=== PATIENT | male | born 1980 | race Caucasian/White ===

== ENCOUNTER → 2024-05-15 | Outpatient (CLI) | payer BC, SELFPAY ==
[2024-05-15 08:55] LABS: Collection Type, Urine Clean Catch
[2024-05-15 09:33] LABS: Basophils # (Auto) 0.1 Thou/mm3 (0.0-0.2); Basophils % (Auto) 1 % (0-2.5); Eosinophils # (Auto) 0.1 Thou/mm3 (0.0-0.5); Eosinophils % (Auto) 1 % (0-10); Hematocrit 45.3 % (41.0-53.0); Immature Granulocytes % (Auto) 0 % (0-0); Immature Granulocytes Auto 0.02 Thou/mm3 (0.00-0.00); Lymphocytes # (Auto) 2.1 Thou/mm3 (1.0-4.8); Lymphocytes % (Auto) 22 % (10-50); Mean Corpuscular HGB Conc 33.1 g/dl (31.0-37.0); Mean Corpuscular Volume 85 fL (80-100); Monocytes # (Auto) 0.5 Thou/mm3 (0.0-0.8); Monocytes % (Auto) 5 % (0-12); Neutrophils # (Auto) 6.7 Thou/mm3 (1.8-7.7); Neutrophils % (Auto) 70 % (37-80); Nucleated Red Blood Cell % 0 /100 WBC (0); Platelet Count 296 Thou/mm3 (140-440); RDW Standard Deviation 39.7 fL (35.1-43.9); Red Blood Count 5.35 Miln/mm3 (4.50-5.90); White Blood Count 9.6 Thou/mm3 (3.8-10.6)
[2024-05-15 09:37] LABS: Bilirubin,Urine Negative (Negative); Blood,Urine Negative (Negative); Clarity,Urine Clear (Clear/Hazy); Color,Urine Lt-Yellow (Lt Yel-Yel); Culture Indicated,Urine Not Indicated; Glucose, Urine Negative (Negative); Ketones,Urine Negative (Negative); Leukocyte Esterase,Urine Negative (Negative); Nitrite,Urine Negative (Negative); PH,Urine 6.5 (5.0-7.0); Protein,Urine Negative (Neg - Trace); RBC,Urine < 1 /hpf (0-3); Specific Gravity,Urine 1.018 (1.001-1.035); Squamous Epithelial Cell,Urine < 1 /hpf (0-5); Urobilinogen,Urine Negative mg/dL (0.0-1.0); WBC,Urine 1 /hpf (0-5)
[2024-05-15 09:42] LABS: Glucose Estimated Average 100 mg/dL (80-131); Hemoglobin A1C 5.1 % Hgb (4.8-6.0)
[2024-05-15 09:50] LABS: Prostate Specific Antigen 1.03 ng/mL (0-4.00)
[2024-05-15 09:56] LABS: Vitamin D 25 Hydroxy Total 32.2 ng/mL (7.3-40.2)
[2024-05-15 10:13] LABS: Alanine Aminotransferase 9 U/L (10-49); Albumin, Serum 4.2 gm/dL (3.5-5.0); Alkaline Phosphatase 57 U/L (46-116); Anion Gap 6 (7-16); Aspartate Amino Transferase 15 U/L (0-34); BUN/Creatinine Ratio 21 Ratio (12-20); Bilirubin,Total 0.5 mg/dL (0.3-1.2); Blood Urea Nitrogen 21 mg/dL (9-23); Calcium 9.6 mg/dL (8.3-10.6); Calcium (Corrected) 9.6 mg/dL (8.5-10.1); Carbon Dioxide 24.8 mMol/L (20.0-31.0); Cardiac Risk Estimate 5.2 RATIO (4.0-6.7); Chloride 106 mMol/L (98-107); Cholesterol 222 mg/dL (132-200); Globulin 2.1 gm/dL (2.3-3.5); Glucose 89 mg/dL (74-106); HDL Cholesterol 43 mg/dL (40-60); LDL Cholesterol,Calculated 155 mg/dL (0-130); Osmolality,Calculated 275 (275-295); Potassium 4.6 mMol/L (3.4-5.1); Sodium 137 mMol/L (136-145); Thyroid Stimulating Hormone 1.34 uIU/mL (0.55-4.78); Total Protein 6.3 gm/dL (5.7-8.2); Triglycerides 119 mg/dL (30-150); eGFR > 60 See Note
== END | disposition home or self-care (01) ==
LOC: COPL 08:17
PROVIDERS: PCP Nurse Practitioner Family; Referring Provider Nurse Practitioner Family; Visit Provider Nurse Practitioner Family
DX: Z00.00 Encounter for general adult medical examination without abnormal findings (principal)
CPT/HCPCS: 36415; 80053; 80061; 81001; 82306; 83036; 84153; 84443; 85025

== ENCOUNTER 2024-06-29 09:10 | Day surgery (SDC) | payer BC, SELFPAY ==
--- NOTE | 2024-06-26 08:17 | EKG_ITS ---
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
[2024-06-26 12:05] LABS: Partial Thromboplastin Time 25.8 Seconds (22.0-36.0); Prothrombin Time 10.8 Seconds (9.0-12.2)
[2024-06-26 12:05] LABS: Alanine Aminotransferase 8 U/L (10-49); Albumin, Serum 4.2 gm/dL (3.5-5.0); Albumin/Globulin Ratio 1.7 (1.2-2.2); Alkaline Phosphatase 67 U/L (46-116); Anion Gap 11 (7-16); Aspartate Amino Transferase 19 U/L (0-34); BUN/Creatinine Ratio 21 Ratio (12-20); Bilirubin,Total 0.7 mg/dL (0.3-1.2); Blood Urea Nitrogen 21 mg/dL (9-23); Calcium 9.7 mg/dL (8.3-10.6); Calcium (Corrected) 9.7 mg/dL (8.5-10.1); Carbon Dioxide 22.8 mMol/L (20.0-31.0); Chloride 106 mMol/L (98-107); Globulin 2.5 gm/dL (2.3-3.5); Glucose 101 mg/dL (74-106); Osmolality,Calculated 282 (275-295); Sodium 140 mMol/L (136-145); Total Protein 6.7 gm/dL (5.7-8.2); eGFR > 60 See Note
[2024-06-29 10:10] VITALS: BP 121/79; PULSE 73; RESP 19; TEMP 36.2; O2SAT 97; BMI 33.4
[2024-06-29 11:18] VITALS: BP 127/81; PULSE 70; PULSE 71; RESP 18; O2SAT 99
[2024-06-29] MEDS: RINGERS LACTATED 1000 ML 1,000 ML 125 ML IV (11:18)
[2024-06-29 11:36] VITALS: BP 121/77; PULSE 72; RESP 24; TEMP 36.4; O2SAT 92
[2024-06-29 11:46] VITALS: BP 120/77; PULSE 75; RESP 15; O2SAT 93
[2024-06-29 11:56] VITALS: BP 120/80; PULSE 83; RESP 16; O2SAT 95
[2024-06-29 12:06] VITALS: BP 123/79; PULSE 84; RESP 18; TEMP 36.4; O2SAT 95
== END 2024-06-29 12:10 | disposition home or self-care (01) ==
PROVIDERS: Anesthesiology; PCP Nurse Practitioner Family; Referring Provider Specialist; Visit Provider Specialist
PROC: (CPT 43239; principal; 2024-06-29 10:15)
DX: K20.90 Esophagitis, unspecified without bleeding (principal); K22.10 Ulcer of esophagus without bleeding; K29.70 Gastritis, unspecified, without bleeding; K29.50 Unspecified chronic gastritis without bleeding; Z01.810 Encounter for preprocedural cardiovascular examination
CPT/HCPCS: 43239; 36415; 80053; 85610; 85730; 93005; A4649; J7120

== ENCOUNTER → 2024-07-16 | Outpatient (BNVA) | payer BC, SELFPAY | END | disposition home or self-care (01) | PROVIDERS: PCP Family Medicine; Referring Provider Family Medicine; Visit Provider Urology | DX: N40.1 Benign prostatic hyperplasia with lower urinary tract symptoms (principal); N13.8 Other obstructive and reflux uropathy; N52.9 Male erectile dysfunction, unspecified; F32.A Depression, unspecified; I10 Essential (primary) hypertension; F41.9 Anxiety disorder, unspecified; K21.9 Gastro-esophageal reflux disease without esophagitis; F17.220 Nicotine dependence, chewing tobacco, uncomplicated | CPT/HCPCS: 81003; 99203; G0463 ==

== ENCOUNTER → 2024-08-27 | Outpatient (BNVA) | payer BC, SELFPAY | END | disposition home or self-care (01) | PROVIDERS: PCP Family Medicine; Referring Provider Family Medicine; Visit Provider Urology | DX: N40.1 Benign prostatic hyperplasia with lower urinary tract symptoms (principal); R39.12 Poor urinary stream; F17.210 Nicotine dependence, cigarettes, uncomplicated; I10 Essential (primary) hypertension; G47.30 Sleep apnea, unspecified | CPT/HCPCS: 51741; 51798 ==

== ENCOUNTER → 2024-10-23 | Outpatient (BNVA) | payer BC, SELFPAY | END | disposition home or self-care (01) | PROVIDERS: PCP Family Medicine; Referring Provider Family Medicine; Visit Provider Urology | DX: N40.1 Benign prostatic hyperplasia with lower urinary tract symptoms (principal); N13.8 Other obstructive and reflux uropathy; R35.0 Frequency of micturition; N52.9 Male erectile dysfunction, unspecified; I10 Essential (primary) hypertension; F32.A Depression, unspecified; F41.9 Anxiety disorder, unspecified; E66.01 Morbid (severe) obesity due to excess calories; Z71.3 Dietary counseling and surveillance; Z68.35 Body mass index [BMI] 35.0-35.9, adult; F17.210 Nicotine dependence, cigarettes, uncomplicated; K21.9 Gastro-esophageal reflux disease without esophagitis | CPT/HCPCS: 81003; 99212; G0463 ==

== ENCOUNTER 2025-03-05 09:59 | Emergency (ER) | payer BC, SELFPAY ==
[2025-03-05 10:42] VITALS: BP 133/89; PULSE 97; RESP 18; TEMP 36.7; O2SAT 96; BMI 36.4
--- NOTE | 2025-03-05 10:52 | PD.EDRME ---
Rapid Medical Screening Exam RME Arrival date/time: 03/05/25 09:59 Chief Complaint: Abdominal Pain Vital signs: Vital Signs Temperature 98.0 F 03/05/25 10:42 Pulse Rate 97 03/05/25 10:42 Respiratory Rate 18 03/05/25 10:42 Blood Pressure 133/89 H 03/05/25 10:42 Pulse Oximetry (%) 96 03/05/25 10:42 Oxygen Delivery Method Room Air 03/05/25 10:42 RME Narrative: 44-year-old male with a past medical history of depression, anxiety, pancreatitis who presents to the ER after being on Augmentin for 2-1/2 days for diverticulitis by his PCP for worsening pain that sexy migrating to the right side which started on the left. Denies any vomiting, diarrhea, fever, dysuria. Patient is only taking Augmentin twice daily. Exam: Head: Normocephalic, atraumatic. Respiratory: Normal effort. No respiratory distress or accessory muscle use. Neuro: Speech normal. Skin: Warm, dry, normal color. Psych: Pleasant. Normal affect. Cooperative. Clinical Impression: Abdominal pain
--- NOTE | 2025-03-05 10:54 | XR_ITS ---
Examination: CT abdomen and pelvis without contrast. Coronal 3-D reconstructions. Sagittal 2-D reconstructions. Date and time of exam: March 05, 2025, 1132 hours INDICATIONS: Right lower abdominal pain today COMPARISON: March 03, 2021 CTDI: vol (mGy): 11.3 DLP: (mGycm): 953 Technique: Axial images of the abdomen have been obtained, 3 mm slice thickness Intravenous contrast material has not been administered. Low dose protocols were performed. One or more of the following dose reduction techniques were used; automated exposure control, adjustment of the mA and/or KV according to patient size, use of iterative reconstruction technique. Findings: Trace pericardial thickening No visualized liver or splenic lesion No gallstones No pancreatic or adrenal mass No renal or ureteral calculi, no hydronephrosis Normal appendix No bowel obstruction No diverticulitis Normal seminal vesicles No prostatomegaly Contracted urinary bladder Fat-containing left inguinal hernia IMPRESSION: Negative for pancreatitis No renal or ureteral calculi, no hydronephrosis Normal appendix No bowel obstruction or free air
[2025-03-05] MEDS: ONDANSETRON ODT 4 MG TABRAP PO (11:21)
[2025-03-05] MEDS: KETOROLAC INJ 30 MG/ML VIAL IM (11:22)
[2025-03-05 11:35] LABS: Collection Type, Urine Voided
[2025-03-05 11:41] LABS: Basophils # (Auto) 0.1 Thou/mm3 (0.0-0.2); Basophils % (Auto) 0 % (0-2.5); Eosinophils # (Auto) 0.2 Thou/mm3 (0.0-0.5); Eosinophils % (Auto) 1 % (0-10); Hematocrit 44.0 % (41.0-53.0); Hemoglobin 14.7 g/dL (13.5-16.0); Immature Granulocytes Auto 0.04 Thou/mm3 (0.00-0.00); Lymphocytes # (Auto) 1.9 Thou/mm3 (1.0-4.8); Lymphocytes % (Auto) 15 % (10-50); Mean Corpuscular HGB Conc 33.4 g/dl (31.0-37.0); Mean Corpuscular Hemoglobin 27.9 pg (25.0-35.0); Mean Corpuscular Volume 84 fL (80-100); Monocytes # (Auto) 0.5 Thou/mm3 (0.0-0.8); Monocytes % (Auto) 4 % (0-12); Neutrophils # (Auto) 9.8 Thou/mm3 (1.8-7.7); Neutrophils % (Auto) 79 % (37-80); Nucleated Red Blood Cell # 0.00 Thou/mm3 (0.00-0.00); Nucleated Red Blood Cell % 0 /100 WBC (0); Platelet Count 255 Thou/mm3 (140-440); RDW Standard Deviation 38.7 fL (35.1-43.9); Red Blood Count 5.26 Miln/mm3 (4.50-5.90); White Blood Count 12.5 Thou/mm3 (3.8-10.6)
[2025-03-05 11:49] LABS: Bilirubin,Urine Negative (Negative); Blood,Urine Negative (Negative); Clarity,Urine Clear (Clear/Hazy); Color,Urine Yellow (Lt Yel-Yel); Glucose, Urine Negative (Negative); Ketones,Urine Negative (Negative); Leukocyte Esterase,Urine Negative (Negative); Nitrite,Urine Negative (Negative); PH,Urine 6.5 (5.0-7.0); Protein,Urine Trace (Neg - Trace); RBC,Urine 5 /hpf (0-3); Specific Gravity,Urine 1.023 (1.001-1.035); Squamous Epithelial Cell,Urine < 1 /hpf (0-5); Urobilinogen,Urine 4.0 mg/dL (0.0-1.0); WBC,Urine 1 /hpf (0-5)
[2025-03-05 12:40] LABS: Alanine Aminotransferase 35 U/L (10-49); Albumin, Serum 4.6 gm/dL (3.5-5.0); Albumin/Globulin Ratio 1.8 (1.2-2.2); Alkaline Phosphatase 77 U/L (46-116); Anion Gap 9 (7-16); Aspartate Amino Transferase 33 U/L (0-34); BUN/Creatinine Ratio 9 Ratio (12-20); Bilirubin,Total 0.8 mg/dL (0.3-1.2); Blood Urea Nitrogen 9 mg/dL (9-23); Calcium 9.5 mg/dL (8.3-10.6); Calcium (Corrected) 9.5 mg/dL (8.5-10.1); Carbon Dioxide 23.7 mMol/L (20.0-31.0); Chloride 107 mMol/L (98-107); Creatinine (Component) 1.0 mg/dL (0.6-1.3); Estimated Creatinine Clearance 121.1 mL/min (>60); Globulin 2.5 gm/dL (2.3-3.5); Glucose 89 mg/dL (74-106); Lipase 22 U/L (12-53); Osmolality,Calculated 277 (275-295); Potassium 3.9 mMol/L (3.4-5.1); Sodium 140 mMol/L (136-145); Total Protein 7.1 gm/dL (5.7-8.2); eGFR > 60 See Note
[2025-03-05 14:40] VITALS: BP 130/66; PULSE 88; RESP 19; TEMP 36.3; O2SAT 96
--- NOTE | 2025-03-05 14:54 | PD.EDADULT ---
ED General RME/HPI General Chief complaint: Abdominal Pain Stated complaint: SENT BY PCP FOR ABDOMINAL PAIN Time Seen by Provider: 03/05/25 10:54 Arrival date/time: 03/05/25 09:59 RME / HPI RME / HPI narrative: 44-year-old male with a past medical history of depression, anxiety, pancreatitis who presents to the ER after being on Augmentin for 2-1/2 days for diverticulitis by his PCP for worsening pain that sexy migrating to the right side which started on the left. Denies any vomiting, diarrhea, fever, dysuria. Patient is only taking Augmentin twice daily. Exam: Head: Normocephalic, atraumatic. Respiratory: Normal effort. No respiratory distress or accessory muscle use. Neuro: Speech normal. Skin: Warm, dry, normal color. Psych: Pleasant. Normal affect. Cooperative. Impression: Abdominal pain Related Data Home Medications ?Medication ?Instructions ?Recorded ?Confirmed amitriptyline 150 mg tablet 150 mg PO QDAY 06/29/24 10/23/24 amlodipine 5 mg-benazepril 40 mg 1 cap PO DAILY 06/29/24 10/23/24 capsule bupropion HCl 150 mg 24 hr tablet, 150 mg PO DAILY 06/29/24 10/23/24 extended release clonazepam 0.5 mg tablet (Klonopin) 0.5 mg PO BID PRN pain 06/29/24 10/23/24 fluoxetine 40 mg capsule 40 mg PO QDAY 06/29/24 10/23/24 gabapentin 300 mg capsule 300 mg PO BID 06/29/24 10/23/24 hydroxyzine HCl 25 mg tablet 25 mg PO BID 06/29/24 10/23/24 Held on 06/29/24. Instructions: Resume on 06/30/24. prazosin 1 mg capsule 1 mg PO QDAY 06/29/24 10/23/24 Previous Rx's ?Medication ?Instructions ?Recorded hyoscyamine sulfate 0.125 mg 0.125 mg PO QID PRN dyspepsia 1 03/05/25 disintegrating tablet week #28 tabs Allergies Allergy/AdvReac Type Severity Reaction Status Date / Time bee venom protein (honey bee) Allergy Severe OTHER Verified 10/23/24 09:03 levofloxacin Allergy Severe VOMITING, Verified 10/23/24 09:03 DIZZY, SOB ED Exam Narrative Physical exam: Physical Exam: GENERAL: Awake, answering questions appropriately, appears stated age HEENT: NC/AT. Moist mucosa. PERRLA/EOMI. CARDIO: Heart RRR, no obvious murmurs, no JVD. PULM: No coughing or visible SOB. Lungs CTA B/L. GI: Abdomen soft, NT/ND, +BS. SKIN/MSK/EXT: No wounds/discoloration/rashes/edema/amputations noted. +Pedal pulses present B/L. NEURO: Oriented x3, Moves extremities x4, no focal neurological deficits noted Course Quality Measures none Orders Category Date Time Status NPO NOW Care 03/05/25 10:54 Active Diet NPO (NOW) Diet 03/05/25 10:[address] abdomen pelvis wo con Stat Exams 03/05/25 10:54 Completed CBC Stat Lab 03/05/25 11:06 Completed CMP [Comprehensive Metabolic Panel] Stat Lab 03/05/25 11:06 Completed Lipase Stat Lab 03/05/25 11:06 Completed Urinalysis Stat Lab 03/05/25 11:24 Completed Urine Culture Stat Lab 03/05/25 11:24 Received Ketorolac Inj [Toradol Inj] Med 03/05/25 10:53 Discontinued 30 mg IM X1 ONE Ondansetron Odt [Zofran Odt] Med 03/05/25 10:53 Discontinued 4 mg PO X1 ONE Vital Signs Vital signs: Vital Signs Temperature 98.0 F 03/05/25 10:42 Pulse Rate 97 03/05/25 10:42 Respiratory Rate 18 03/05/25 10:42 Blood Pressure 133/89 H 03/05/25 10:42 Pulse Oximetry (%) 96 03/05/25 10:42 Oxygen Delivery Method Room Air 03/05/25 10:42 Discharge Plan Plan Patient Disposition: HOME (Self Care) Patient condition on transfer: Stable Prescriptions/Referrals Prescriptions/Med Rec: New hyoscyamine sulfate 0.125 mg tablet,disintegrating 0.125 mg PO QID PRN (Reason: dyspepsia) 7 Days Qty: 28 0RF No Action amitriptyline 150 mg tablet 150 mg PO QDAY Patient Comments: TAKE 1 TABLET BY MOUTH EVERYDAY AT BEDTIME hydroxyzine HCl 25 mg tablet 25 mg PO BID Patient Comments: TAKE 1 TABLET BY MOUTH TWICE A DAY NEEDED amlodipine-benazepril 5-40 mg capsule 1 cap PO DAILY Patient Comments: TAKE 1 CAPSULE BY MOUTH EVERY DAY FOR 30 DAYS bupropion HCl 150 mg tablet extended release 24 hr 150 mg PO DAILY Patient Comments: TAKE 1 TABLET BY MOUTH EVERY DAY IN THE MORNING gabapentin 300 mg capsule 300 mg PO BID Patient Comments: TAKE 1 CAPSULE BY MOUTH TWICE A DAY clonazepam [Klonopin] 0.5 mg tablet 0.5 mg PO BID PRN (Reason: pain) prazosin 1 mg capsule 1 mg PO QDAY Patient Comments: TAKE 1 CAPSULE BY MOUTH EVERYDAY AT BEDTIME fluoxetine 40 mg capsule 40 mg PO QDAY Patient Comments: TAKE 1 CAPSULE BY MOUTH EVERY DAY Referrals: Fatemeh Whaley INTERCEPTOR OPERATOR [Primary Care Provider] - In 1 week Problem List Clinical Impression: IBS (irritable bowel syndrome) Patient/Caregiver Discharge Instructions Education Materials: What Is Irritable Bowel ... Additional Instructions: Take hyoscyamine 0.125mg tablet four times a day as needed for abdominal tenderness Follow-up with your PCP within 7 days and ask for an appointment with your GI provider for colonoscopy If your symptoms worsen or if you develop new chest pain, shortness of breath, severe abdominal pain or bleeding - please come back to the ER immediately. Print Language: Turkmen Stand Alone Forms: [employer] Award Info., Patient Portal Info Letter MDM Narrative MDM hospital course (for use when minimal MDM required): HPI: 44-year-old male with past medical history of generalized anxiety disorder, PTSD, GERD/history of peptic ulcer disease, hypertension presenting to the ED on 03/05 for generalized abdominal pain. Of note, apparently patient presented to his PCPs office Saturday 03/03 for similar complaints and at that point was prescribed Augmentin for 14 days. Patient states that his pain like a stabbing sensation all throughout his abdomen. He denies any melena, hematochezia, hematemesis, weight loss, fever/chills, chest pain or shortness of breath. He apparently went back to his PCP on 03/05 at which point he was told to go to the ED for CT scan. On examination, patient presented physical exam noted above; patient presented to the ED mildly hypertensive 130/66, heart rate of 88, respiratory rate 19, afebrile satting 96 on room air. Labs are significant for mild leukocytosis with a WBC of 12.5 without any left shift, no anemia thrombocytopenia, CMP does not show any abnormalities electrolytes, LFTs are within normal limits, lipase of 22. Urinalysis not show any signs of infection. CT abdomen pelvis was negative for any pancreatitis, ureteral calculi, diverticulitis or any other concerning findings. #Abdominal pain Differentials include dyspepsia, IBS, IBD, gastritis, enterocolitis As noted, patient CT scan largely unremarkable and other than mild leukocytosis there is no concerning findings Patient is on Augmentin, twice daily for about 12 days remaining Plan: Will discharge patient on the following instructions Take hyoscyamine 0.125mg tablet four times a day as needed for abdominal tenderness Follow-up with your PCP within 7 days and ask for an appointment with your GI provider for colonoscopy If your symptoms worsen or if you develop new chest pain, shortness of breath, severe abdominal pain or bleeding - please come back to the ER immediately. Patient seen and assessed with attending Dr. Christa Colbert, DO PGY-2 Internal Medicine - GME Medication Administration(s) Medication Administration History Discontinued Medications Ketorolac Tromethamine (Ketorolac Inj 30 Mg/Ml Vial) 30 mg IM X1 ONE Stop: 03/05/25 10:54 Last Admin: 03/05/25 11:22 Dose: 30 mg Documented By: Ondansetron HCl (Ondansetron Odt 4 Mg Tabrap) 4 mg PO X1 ONE; Protocol Stop: 03/05/25 10:54 Last Admin: 03/05/25 11:21 Dose: 4 mg Documented By:
== END 2025-03-05 15:15 | disposition home or self-care (01) ==
PROVIDERS: Physician Assistant; Emergency Provider Family Medicine; PCP Nurse Practitioner Family
DX: K58.9 Irritable bowel syndrome, unspecified (principal)
CPT/HCPCS: 36415; 74176; 80053; 81001; 83690; 85025; 87086; 96372; 99283; J1885; Q0162